=== PATIENT | female | born 1975 | race Caucasian/White ===

== ENCOUNTER 2022-08-01 04:48 | Emergency (ER) | payer SELFPAY ==
[~2022-08-01] VITALS: Ht 165.1 cm; Wt 81.6 kg
[2022-08-01 04:57] VITALS: BP 132/95
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
--- NOTE | 2022-08-01 05:10 | NUR ---
pt is in the lobby
[2022-08-01 05:45] VITALS: BP 132/95
--- NOTE | 2022-08-01 06:17 | NUR ---
Patient discharged with v/s stable. Written and verbal after care instructions given and explained. Patient verbalized understanding. Ambulatory with to home. All questions addressed prior to discharge. Advised to follow up with PMD. pt left with with her belongings.
== END 2022-08-01 05:45 | disposition home or self-care (01) ==
LOC: MED 04:48
DX: S00.81XA Abrasion of other part of head, initial encounter (principal); Z88.0 Allergy status to penicillin; Y04.0XXA Assault by unarmed brawl or fight, initial encounter; Y93.89 Activity, other specified; Y92.89 Other specified places as the place of occurrence of the external cause; Y99.8 Other external cause status
CPT/HCPCS: 99281